=== PATIENT | male | born 2005 | race Hispanic/Latino ===

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

== ENCOUNTER → 2023-03-24 | Emergency (ER) | payer OTHER, SELFPAY ==
[~2023-03-24] MED LIST: KETOROLAC 30 MG/ML INJ ONE
--- OUTSIDE RECORDS SUMMARY | 2023-03-24 18:22 | XMS REPORT | Continuity of Care Document ---
Author Name Unknown Address [address] [facility] [address] [place] [address] [facility] thconnect Address [address] [facility]. [address] [place] [address] Care Team Providers Care Content Administrator Name Role Phone Pcp, Patient Does Not Have A Primary Care Physic jazmine Jaison Neff Attending Clinician Unavailable DAVID RAMIREZ Attending Clinician Unavailable Analia Beltran MD Attending Clinician ANALIA BELTRAN Attending Clinician Unavaila ble Doctor Unassigned, Buna Attending Clinician U David Sawant MD Attending Clinician [phone] ODILIA HARRIS Attending Clinician Unavailable Idalia Verdugo MD Attending Clinician [phone] IDALIA VERDUGO Attending Clinician Michael waldron Payers Payer Name Policy Type Policy Number Effective Date Expirati on Date Source [facility] 53 [id number] [facility] [id number] 2019 00:00:00 Problems Condition Name Condition Details Condition Category Status Onset Date Resolution Date Last Treatment Date Treating Clinician Comments Source TSH elevation TSH elevation Disease Active 06-11 00:00: 00 [facility] Anti-TPO antibodies present Anti-TPO antibodies present Disease Active 06-11 00:00: 00 [facility] [id number] Essential (primary) hypertensi on Problem [facility] [id number] Other obesity due to excess calories Problem [facility] [id number] Body mass index [BMI] 33.0-33.9, adult Problem [facility] [id number] Lymphocyto sis (symptomat ic) Problem [facility] [id number] Mixed hyperlipid emia Problem [facility] [id number] Personal history of other mental and behavioral disorders Problem [facility] [id number] Other specified anxiety disorders Problem [facility] [id number] Sleep trouble Problem [facility] Allergies, Adverse Reactions, Alerts Allergy Name Allergy Type Status Severity Reaction(s) Onset Date Inactive Date Treating Clinician Comments Source NO KNOWN ALLERGIE S Drug Class Active [facility] Social History Social Habit Start Date Stop Date Quantity Comments Source Sex Assigned At [facility] History of Tobacco Use [facility] Exposure to SARS-CoV-2 (event) Not sure [facility] Tobacco use and exposure 2020-06-11 00:00:00 2020-06-11 00:00:00 Never used [facility] Smoking Status Start Date Stop Date Source Never Smoker [facility] Medications Ordered Medication Name Filled Medication Name Start Date Stop Date Current Medication? Ordering Clinician Indication Dosage Frequency Signature (SIG) Comments Components Source Triamcinolo ne Acetonide 0.1 % Triamcinolo ne Acetonide 0.1 % 05-27 00:00: 00 No 1{appli cation} BID Triamcinol one Acetonide 0.1 % Cetirizine HCl 10 MG Cetirizine HCl 10 MG 05-27 00:00: 00 No 1{table t} QD Cetirizine HCl 10 MG Triamcinolo ne Acetonide 0.1 % Triamcinolo ne Acetonide 0.1 % 05-27 00:00: 00 No 1{appli cation} BID Triamcinol one Acetonide 0.1 % Cetirizine HCl 10 MG Cetirizine HCl 10 MG 3-0 05-27 00:00: 00 No 1{table t} QD Cetirizine HCl 10 MG Triamcinolo ne Acetonide 0.1 % Triamcinolo ne Acetonide 0.1 % 3-0 05-27 00:00: 00 No 1{appli cation} BID Triamcinol one Acetonide 0.1 % Cetirizine HCl 10 MG Cetirizine HCl 10 MG 3-0 05-27 00:00: 00 No 1{table t} QD Cetirizine HCl 10 MG Triamcinolo ne Acetonide 0.1 % Triamcinolo ne Acetonide 0.1 % 3-0 05-27 00:00: 00 No 1{appli cation} BID Triamcinol one Acetonide 0.1 % Cetirizine HCl 10 MG Cetirizine HCl 10 MG 3-0 05-27 00:00: 00 No 1{table t} QD Cetirizine HCl 10 MG Triamcinolo ne Acetonide 0.1 % Triamcinolo ne Acetonide 0.1 % 3-0 05-27 00:00: 00 No 1{appli cation} BID Triamcinol one Acetonide 0.1 % Cetirizine HCl 10 MG Cetirizine HCl 10 MG 3-0 05-27 00:00: 00 No 1{table t} QD Cetirizine HCl 10 MG Triamcinolo ne Acetonide 0.1 % Triamcinolo ne Acetonide 0.1 % 2022-0 05-27 00:00: 00 No 1{appli cation} BID Triamcinol one Acetonide 0.1 % Cetirizine HCl 10 MG Cetirizine HCl 10 MG 3-0 05-27 00:00: 00 No 1{table t} QD Cetirizine HCl 10 MG Triamcinolo ne Acetonide 0.1 % Triamcinolo ne Acetonide 0.1 % 3-0 05-27 00:00: 00 No 1{appli cation} BID Triamcinol one Acetonide 0.1 % Cetirizine HCl 10 MG Cetirizine HCl 10 MG 3-05-27 00:00: 00 No 1{table t} QD Cetirizine HCl 10 MG Triamcinolo ne Acetonide 0.1 % Triamcinolo ne Acetonide 0.1 % 05-27 00:00: 00 No 1{appli cation} BID Triamcinol one Acetonide 0.1 % Cetirizine HCl 10 MG Cetirizine HCl 10 MG 2022-0 05-27 00:00: 00 No 1{table t} QD Cetirizine HCl 10 MG lisinopriL 10 mg tablet 1-14 14:39: 49 Yes 10mg Take 10 mg by mouth daily. [facility] hydrOXYzine 25 mg tablet 02-15 00:00: 00 Yes [facility] Lisinopril 20 MG Lisinopril 20 MG No 1{table t} QD Lisinopril 20 MG Paxlovid (300/100) 20 x 150 MG & 10 x 100MG Paxlovid (300/100) 20 x 150 MG & 10 x 100MG No 3{table ts} BID Paxlovid (300/100) 20 x 150 MG & 10 x 100MG Lisinopril 20 MG Lisinopril 20 MG No 1{table t} QD Lisinopril 20 MG Paxlovid (300/100) 20 x 150 MG & 10 x 100MG Paxlovid (300/100) 20 x 150 MG & 10 x 100MG No 3{table ts} BID Paxlovid (300/100) 20 x 150 MG & 10 x 100MG Lisinopril 20 MG Lisinopril 20 MG No 1{table t} QD Lisinopril 20 MG Paxlovid (300/100) 20 x 150 MG & 10 x 100MG Paxlovid (300/100) 20 x 150 MG & 10 x 100MG No 3{table ts} BID Paxlovid (300/100) 20 x 150 MG & 10 x 100MG Lisinopril 20 MG Lisinopril 20 MG No 1{table t} QD Lisinopril 20 MG Paxlovid (300/100) 20 x 150 MG & 10 x 100MG Paxlovid (300/100) 20 x 150 MG & 10 x 100MG No 3{table ts} BID Paxlovid (300/100) 20 x 150 MG & 10 x 100MG Lisinopril 20 MG Lisinopril 20 MG No 1{table t} QD Lisinopril 20 MG Paxlovid (300/100) 20 x 150 MG & 10 x 100MG Paxlovid (300/100) 20 x 150 MG & 10 x 100MG No 3{table ts} BID Paxlovid (300/100) 20 x 150 MG & 10 x 100MG Lisinopril 20 MG Lisinopril 20 MG No 1{table t} QD Lisinopril 20 MG Paxlovid (300/100) 20 x 150 MG & 10 x 100MG Paxlovid (300/100) 20 x 150 MG & 10 x 100MG No 3{table ts} BID Paxlovid (300/100) 20 x 150 MG & 10 x 100MG Lisinopril 20 MG Lisinopril 20 MG No 1{table t} QD Lisinopril 20 MG Lisinopril 20 MG Lisinopril 20 MG No 1{table t} QD Lisinopril 20 MG Lisinopril 20 MG Lisinopril 20 MG No 1{table t} QD Lisinopril 20 MG Lisinopril 20 MG Lisinopril 20 MG No 1{table t} QD Lisinopril 20 MG Lisinopril 20 MG Lisinopril 20 MG No 1{table t} QD Lisinopril 20 MG Lisinopril 20 MG Lisinopril 20 MG No 1{table t} QD Lisinopril 20 MG Lisinopril 20 MG Lisinopril 20 MG No 1{table t} QD Lisinopril 20 MG Paxlovid (300/100) 20 x 150 MG & 10 x 100MG Paxlovid (300/100) 20 x 150 MG & 10 x 100MG No 3{table ts} BID Paxlovid (300/100) 20 x 150 MG & 10 x 100MG Lisinopril 20 MG Lisinopril 20 MG No 1{table t} QD Lisinopril 20 MG Paxlovid (300/100) 20 x 150 MG & 10 x 100MG Paxlovid (300/100) 20 x 150 MG & 10 x 100MG No 3{table ts} BID Paxlovid (300/100) 20 x 150 MG & 10 x 100MG Immunizations Ordered Immunization Name Filled Immunization Name Date Status Comments Source Flucelvax - multidose vial Flucelvax - multidose vial 2021-02-07 15:33:00 Completed [facility] Flucelvax - multidose vial Flucelvax - multidose vial 2021-02-07 15:33:00 Completed [facility] Flucelvax - multidose vial Flucelvax - multidose vial 2021-02-07 15:33:00 Completed [facility] Flucelvax - multidose vial Flucelvax - multidose vial 2021-02-07 15:33:00 Completed [facility] Flucelvax - multidose vial Flucelvax - multidose vial 2021-02-07 15:33:00 Completed [facility] Flucelvax - multidose vial Flucelvax - multidose vial 2021-02-07 15:33:00 Completed [facility] HPV9 2015-08-23 00:00:00 Completed [facility] HPV9 2015-02-13 00:00:00 Completed [facility] Flucelvax - multidose vial Flucelvax - multidose vial Unknown Completed [facility] Flucelvax - multidose vial Flucelvax - multidose vial Unknown Completed [facility] Flucelvax - multidose vial Flucelvax - multidose vial Unknown Completed [facility] Flucelvax - multidose vial Flucelvax - multidose vial Unknown Completed [facility] Flucelvax - multidose vial Flucelvax - multidose vial Unknown Completed [facility] Flucelvax (ccIIV4) - MDV - 0.5mL Flucelvax (ccIIV4) - MDV - 0.5mL Unknown Completed [facility] Flucelvax - multidose vial Flucelvax - multidose vial Unknown Completed [facility] Flucelvax - multidose vial Flucelvax - multidose vial Unknown Completed [facility] Vital Signs Vital Name Observation Time Observation Value Comments S marian height 2022-06-04 11:50:00 69 [in_i] Commo n [facility] weight 2022-06-04 11:50:00 209 [lb_av] Comm on [facility] temperature 2022-06-04 11:50:00 98.0 [degF] Com [facility] bmi 2022-06-04 11:50:00 30.86 kg/m2 Comm on [facility] respiratory rate 2022-05-27 14:40:00 17 /min [facility] blood pressure systolic 2022-05-27 14:40:00 127 mm[Hg] [facility] blood pressure diastolic 2022-05-27 14:40:00 62 mm[Hg] [facility] height 2022-05-27 14:40:00 69 [in_i] Commo n [facility] weight 2022-05-27 14:40:00 216.8 [lb_av] Co [facility] temperature 2022-05-27 14:40:00 98.2 [degF] Com [facility] bmi 2022-05-27 14:40:00 32.01 kg/m2 Comm on [facility] oximetry 2022-05-27 14:40:00 98 % Commo n [facility] height 2021-12-10 14:10:00 69 [in_i] Commo n [facility] weight 2021-12-10 14:10:00 230.0 [lb_av] Co [facility] temperature 2021-12-10 14:10:00 97.4 [degF] Com [facility] bmi 2021-12-10 14:10:00 33.96 kg/m2 Comm on [facility] oximetry 2021-12-10 14:10:00 99 % Commo n [facility] respiratory rate 2021-12-10 14:10:00 18 /min Common [facility] blood pressure systolic 2021-12-10 14:10:00 129 mm[Hg] [facility] blood pressure diastolic 2021-12-10 14:10:00 72 mm[Hg] [facility] height 2021-11-26 15:10:00 69 [in_i] Commo n [facility] weight 2021-11-26 15:10:00 233 [lb_av] Comm on [facility] temperature 2021-11-26 15:10:00 97.3 [degF] Com mon [facility] bmi 2021-11-26 15:10:00 34.4 kg/m2 Commo n [facility] oximetry 2021-11-26 15:10:00 98 % Commo n [facility] respiratory rate 2021-11-26 15:10:00 18 /min Common [facility] blood pressure systolic 2021-11-26 15:10:00 135 mm[Hg] [facility] blood pressure diastolic 2021-11-26 15:10:00 74 mm[Hg] Common [facility] height 2021-06-12 15:30:00 69 [in_i] Commo n [facility] weight 2021-06-12 15:30:00 229.1 [lb_av] Co mmon [facility] temperature 2021-06-12 15:30:00 98.8 [degF] Com mon [facility] bmi 2021-06-12 15:30:00 33.83 kg/m2 Comm on [facility] oximetry 2021-06-12 15:30:00 97 % Commo n [facility] respiratory rate 2021-06-12 15:30:00 17 /min Common [facility] blood pressure systolic 2021-06-12 15:30:00 137 mm[Hg] [facility] blood pressure diastolic 2021-06-12 15:30:00 66 mm[Hg] [facility] Body temperature 2020-10-30 19:27:00 35.89 [facility] Body weight 2020-10-30 19:27:00 131.543 kg [facility] Encounters Start Date/Time End Date/Time Encounter Type Admission Type Attending [facility] Care Facility Care Department Encounter ID Source 2022-03-11 08:31:01 Outpatient Jaison Neff [facility] [id number] [facility] 2021-11-24 15:41:02 Outpatient Jaison Neff [facility] [id number] [facility] 2021-07-04 11:53:03 Outpatient Jaison Neff [facility] [id number] [facility] 2021-06-12 14:56:03 Outpatient Jaison Neff [facility] [id number] [facility] 2022-12-02 00:00:00 2022-12-02 00:00:00 (TEL) [facility] [id number] [facility] 2022-06-08 00:00:00 2022-06-08 00:00:00 (TEL) [facility] [id number] [facility] 2022-06-05 00:00:00 2022-06-05 00:00:00 (TEL) [facility] [id number] [facility] 2022-06-04 00:00:00 2022-06-04 00:00:00 OFFICE VISIT ESTAB PT LEVEL 3 [facility] [id number] [facility] 2022-06-03 10:32:14 2022-06-03 10:32:14 Outpatient SFA HIRAM [id number] Blayne Barnes 2022-06-03 00:00:00 2022-06-03 00:00:00 (TEL) [facility] [id number] [facility] 2022-06-02 00:00:00 2022-06-02 00:00:00 (TEL) [facility] [id number] [facility] 2022-05-27 00:00:00 2022-05-27 00:00:00 OFFICE VISIT ESTAB PT LEVEL 3 [facility] [id number] [facility] 2022-05-26 00:00:00 2022-05-26 00:00:00 (TEL) [facility] [id number] [facility] 2021-12-11 00:00:00 2021-12-11 00:00:00 (TEL) [facility] [id number] [facility] 2021-12-10 00:00:00 2021-12-10 00:00:00 OFFICE VISIT EST PT LEVEL 3 [facility] [id number] [facility] 2021-12-09 00:00:00 2021-12-09 00:00:00 (TEL) [facility] [id number] [facility] 2021-11-26 00:00:00 2021-11-26 00:00:00 OFFICE VISIT EST PT LEVEL 3 [facility] [id number] [facility] 2021-06-12 00:00:00 2021-06-12 00:00:00 PREV VISIT EST AGE 18-39 [facility] [id number] [facility] 2020-12-12 14:30:00 2020-12-12 14:30:00 Outpatient DAVID BHATTI [facility] [id number] [facility] 2020-10-30 14:29:46 2020-10-30 23:59:00 Hospital Encounter Analia Beltran [facility] [id number] [facility] 2020-10-30 14:20:53 2020-10-30 15:08:07 Office Visit Analia Beltran [facility] [id number] [id number] [facility] 2020-10-30 14:10:00 2020-10-30 14:10:00 Outpatient ANALIA MCADAMS [facility] [id number] [facility] 2020-10-23 00:00:00 2020-10-23 00:00:00 Orders Only Doctor Unassigned, Buna [facility] [id number] [id number] [id number] [facility] 2020-10-23 00:00:00 2020-10-23 00:00:00 Orders Only Doctor Unassigned, Buna [facility] [id number] 4.2.7.2.686 [id number] [facility] 2020-06-20 00:00:00 2020-06-20 00:00:00 Telephone [facility] [place] [id number] 350.1.13.10 [id number] [id number] [facility] 2020-06-11 14:21:22 2020-06-11 15:34:20 [facility] [place] [id number] 350.1.13.10 4.2.7.2.686 [id number] [facility] 2020-06-11 14:30:00 2020-06-11 14:30:00 Outpatient R ASHLEY [facility] [id number] [facility] 2020-06-11 00:00:00 2020-06-11 00:00:00 [facility] [id number] 350.1.13.10 [id number] [id number] [facility] 2020-06-11 00:00:00 2020-06-11 00:00:00 Orders Only Doctor Unassigned, Buna [facility] [id number] 350.1.13.10 4.2.7.2.686 [id number] [facility] 2020-06-11 00:00:00 2020-06-11 00:00:00 Letter (Out) [facility] [id number] 350.1.13.10 4.2.7.2.686 [id number] [facility] 2020-06-03 11:10:00 2020-06-03 11:10:00 Outpatient DOILIA MOE [facility] [id number] [facility] 2020-05-08 00:00:00 2020-05-08 00:00:00 Orders Only Doctor Unassigned, Buna [facility] [id number] 350.1.13.10 4.2.7.2.686 [id number] [facility] 2020-02-23 00:00:00 2020-02-23 00:00:00 [address]go [facility] [id number] 350.1.13.10 4.2.7.2.686 [id number] [facility] 2020-02-22 14:13:01 2020-02-22 15:28:26 Office Visit Idalia Verdugo [facility] [id number] 350.1.13.10 4.2.7.2.686 [id number] [facility] 2020-02-22 14:00:00 2020-02-22 14:00:00 Outpatient IDALIA SYKES [facility] [id number] [facility] 2020-02-22 00:00:00 2020-02-22 00:00:00 Orders Only Doctor Unassigned, Buna [facility] [id number] 350.1.13.10 4.2.7.2.686 [id number] [facility]
[2023-03-24 19:03] LABS: Urine Bilirubin NEGATIVE (Negative); Urine Blood Negative (Negative); Urine Clarity Clear (Clear); Urine Color Colorless (Yellow); Urine Glucose NEGATIVE (Negative); Urine Protein NEGATIVE (Negative); Urine Urobilinogen Normal (Normal)
[2023-03-24 19:04] LABS: Absolute Lymphocytes (CBC) 1.5 K/uL (0.7-4.9); Hematocrit 44.6 % (39.6-49.0); Lymphocytes % 20.2 % (15.3-44.8); MCV 90.1 fL (80-100); MPV 7.8 fL (7.6-11.3); Platelets 227 thou/uL (152-406); RBC Red Blood Cell Count 4.95 M/uL (4.33-5.43)
[2023-03-24 19:21] LABS: Bilirubin Total 0.5 mg/dL (0.2-1.0); Potassium 4.6 mEq/L (3.5-5.1); Protein, Total 7.6 g/dL (6.4-8.2)
--- NOTE | 2023-03-24 19:32 | RAD REPORT ---
EXAM DESCRIPTION: CT - Stone Protocol - 03/24/2023 7:12 pm CLINICAL HISTORY: Flank pain. Abd pain;Flank pain COMPARISON: Abdomen Pelvis W Contrast dated 06/05/2022 TECHNIQUE: Axial images were obtained without oral or IV contrast. Lack of contrast limits solid org an and vascular assessment. The [id number] spans the entirety of the system partially obscuring uppermost abdomen and lung bases. Coronal reformatted images were obtained and reviewed. All CT scans are performed using dose optimization technique as appropriate and may include automated exposure control or mA/KV adjustment according to patient size. FINDINGS: The lower lung tamayo are clear. Imaged portions of the liver and spleen show no suspicious findings on non-contrast imaging. The panc reas and adrenal glands are normal. No pathologic lymphadenopathy in the abdomen or pelvis. Atrophic right kidney. Left kidney demonstrates no stone or hydronephrosis. No bowel obstruction, free air, free fluid or abscess. Appendectomy. No significant bony abnormality. IMPRESSION: No left-sided stone or hydronephrosis. Atrophic right kidney.
--- NOTE | 2023-03-24 19:43 | ER ---
Nurse's Notes [facility] Name: Demarcus Mathias III Age: 18 yrs Sex: Male : 2005 Arrival Date: 03/24/2023 Time: 18:19 Bed 20 Private MD: Diagnosis: Abdominal pain, unspecified Presentation: 03/24 18:31 Chief complaint: Patient states: LLQ pain, L flank pain X 5 days. Coronavirus screen: ld1 At this time, the client does not indicate any symptoms associated with coronavirus-19. Ebola Screen: No symptoms or risks identified at this time. Initial Sepsis Screen: Does the patient meet any 2 criteria? No. Patient's initial sepsis screen is negative. Does the patient have a suspected source of infection? No. Patient's initial sepsis screen is negative. Risk Assessment: Do you want to hurt yourself or someone else? Patient reports no desire to harm self or others. Onset of symptoms was March 24, 2023. 18:31 Method Of Arrival: Ambulatory ld1 18:31 Acuity: LUIS ANTONIO 3 ld1 Triage Assessment: 18:32 General: Appears in no apparent distress. comfortable, Behavior is calm, cooperative, ld1 appropriate for age. Pain: Complains of pain in right low back and left lower quadrant Pain does not radiate. Pain currently is 3 out of 10 on a pain scale. Quality of pain is described as throbbing, Pain began suddenly, Is continuous. EENT: No signs and/or symptoms were reported regarding the EENT system. Neuro: Level of Consciousness is awake, alert, obeys commands, Oriented to person, place, time, situation, Appropriate for age. Cardiovascular: Capillary refill < 3 seconds Patient's skin is warm and dry. Respiratory: Airway is patent Respiratory effort is even, unlabored. GI: Abdomen is flat, non-distended. : Reports pain flank(s). Derm: No signs and/or symptoms reported regarding the dermatologic system. Musculoskeletal: No signs and/or symptoms reported regarding the musculoskeletal system. Historical: - Allergies: 18:32 NKDA; ld1 18:32 turf grass; ld1 - PMHx: 18:32 Bordeline HTN; ld1 - PSHx: 18:32 Appendectomy; ld1 - Immunization history:: Adult Immunizations up to date. - Social history:: Smoking status: Patient denies any tobacco usage or history of. Patient/guardian denies using alcohol. Screenin:50 [facility] ED Fall Risk Assessment (Adult) History of falling in the last 3 months, db including since admission No falls in past 3 months (0 pts) Confusion or Disorientation No (0 pts) Intoxicated or Sedated No (0 pts) Impaired Gait No (0 pts) Mobility Assist Device Used No (0 pt) Altered Elimination No (0 pt) Score/Fall Risk Level 0 - 2 = Low Risk Oriented to surroundings, Maintained a safe environment. Abuse screen: Denies threats or abuse. Denies injuries from another. Nutritional screening: No deficits noted. Tuberculosis screening: No symptoms or risk factors identified. Assessment: 18:50 Reassessment: Patient appears in no apparent distress at this time. Patient and/or db family updated on plan of care and expected duration. Pain level reassessed. Patient is alert, oriented x 3, equal unlabored respirations, skin warm/dry/pink. General: Appears in no apparent distress. comfortable, Behavior is calm, cooperative. Neuro: Level of Consciousness is awake, alert, obeys commands, Oriented to person, place, time, situation. Respiratory: Airway is patent Respiratory effort is even, unlabored, Respiratory pattern is regular, symmetrical. Vital Signs: 18:31 BP 145 / 66; Pulse 95; Resp 18; Temp 97.6(TE); Pulse Ox 100% on R/A; Weight 90.72 kg; ld1 Height 5 ft. 10 in. ; Pain 3/10; 20:08 BP 144 / 70; Pulse 70; Resp 18 S; Pulse Ox 100% on R/A; as6 18:31 Body Mass Index 28.70 (90.72 kg, 177.8 cm) ld1 18:31 Pain Scale: Adult ld1 ED Course: 18:22 Patient arrived in ED. ae5 18:24 Charl[facility] Daly [facility]NP-C [facility]. kb 18:24 Hardeep Walker MD is Attending Physician. kb 18:32 Triage completed. ld1 18:32 Arm band placed on right wrist. ld1 18:50 Rosa Maria Camarillo, KARISHMA is Primary Nurse. db 18:50 Patient has correct armband on for positive identification. Bed in low position. Call db light in reach. Side rails up X 1. 18:55 Initial lab(s) drawn, by me, sent to lab. Urine collected: clean catch specimen, clear. db Inserted saline lock: 22 gauge in right antecubital area, using aseptic technique. Blood collected. 19:14 CT Stone Protocol In Process Unspecified. EDMS 19:30 Jolie Prado, RN is Primary Nurse. jw7 20:09 Provided Education on: follow up. as6 20:09 No provider procedures requiring assistance completed. IV discontinued, intact, as6 bleeding controlled, No redness/swelling at site. Pressure dressing applied. Administered Medications: 19:03 Drug: Ketorolac IVP 15 mg IVP once Route: IVP; Site: right antecubital; db 20:09 Follow up: Response: No adverse reaction as6 Medication: 18:50 VIS not applicable for this client. db Outcome: 19:43 Discharge ordered by MD. kb 20:09 Discharged to home ambulatory, with family, as6 20:09 Condition: stable 20:09 Discharge instructions given to patient, Instructed on discharge instructions, follow up and referral plans. Demonstrated understanding of instructions, follow-up care, 20:09 Patient left the ED. as6 Signatures: Dispatcher [employer] EDMS Charlene Daly, TOOLROOM HELPER-C TOOLROOM HELPER-Ckb Nancy Miles, RN RN ld1 Fredy Nguyen, RN RN as6 Jolie Prado, RN RN jw7 Rosa Maria Camarillo, RN RN Kristin Brown ae5
--- NOTE | 2023-03-24 19:43 | EDPHYS ---
Physician Documentation [facility] Name: Demarcus Mathias III Age: 18 yrs Sex: Male : 2005 Arrival Date: 03/24/2023 Time: 18:19 Bed 20 Private MD: ED Physician Hardeep Walker HPI: 03/24 20:33 This 18 yrs old Male presents to ER via Ambulatory with complaints of Flank kb Pain. 20:33 Patient is a 18-year-old male who presents for intermittent left flank and left kb abdominal pain that started 5 days ago. Denies nausea, vomiting, diarrhea, fever, urinary symptoms. States nothing makes pain better or worse.. Historical: - Allergies: 18:32 NKDA; ld1 18:32 turf grass; ld1 - PMHx: 18:32 Bordeline HTN; ld1 - PSHx: 18:32 Appendectomy; ld1 - Immunization history:: Adult Immunizations up to date. - Social history:: Smoking status: Patient denies any tobacco usage or history of. Patient/guardian denies using alcohol. ROS: 20:33 Constitutional: Negative for fever, chills, and weight loss, kb 20:33 Abdomen/GI: Positive for abdominal pain, 20:33 Back: Positive for flank pain, on the left, 20:33 All other systems are negative, Exam: 20:33 Constitutional: This is a well developed, well nourished patient who is awake, alert, kb and in no acute distress. Head/Face: Normocephalic, atraumatic. ENT: Moist Mucous membranes Cardiovascular: Regular rate Respiratory: Respirations even and unlabored. No increased work of breathing. Talking in full sentences Abdomen/GI: Soft, non-tender. No distention Skin: Warm, dry with normal turgor. Normal color. MS/ Extremity: Pulses equal, no cyanosis. Neurovascular intact. Full, normal range of motion. Neuro: Awake and alert, GCS 15, oriented to person, place, time, and situation. Moves all extremities. Normal gait. Vital Signs: 18:31 BP 145 / 66; Pulse 95; Resp 18; Temp 97.6(TE); Pulse Ox 100% on R/A; Weight 90.72 kg; ld1 Height 5 ft. 10 in. ; Pain 3/10; 20:08 BP 144 / 70; Pulse 70; Resp 18 S; Pulse Ox 100% on R/A; as6 18:31 Body Mass Index 28.70 (90.72 kg, 177.8 cm) ld1 18:31 Pain Scale: Adult ld1 MDM: 18:24 Patient medically screened. kb 20:34 Differential diagnosis: nephrolithiasis, pyelonephritis, UTI, diverticulitis. Data kb reviewed: vital signs, nurses notes. Counseling: I had a detailed discussion with the patient and/or guardian regarding the historical points, exam findings, and any diagnostic results supporting the discharge/admit diagnosis, lab results, radiology results, the need for outpatient follow up, a family practitioner, to return to the emergency department if symptoms worsen or persist or if there are any questions or concerns that arise at home. 03/24 18:30 Order name: CBC with Diff; Complete Time: 19:06 kb 03/24 18:30 Order name: CMP; Complete Time: 19:24 kb 03/24 18:30 Order name: Lipase; Complete Time: 19:24 kb 03/24 18:30 Order name: Urinalysis w/ reflexes; Complete Time: 19:06 kb 03/24 18:30 Order name: CT Stone Protocol; Complete Time: 19:38 kb 03/24 18:30 Order name: IV Saline Lock; Complete Time: 19:03 kb 03/24 18:30 Order name: Labs collected and sent; Complete Time: 19:03 kb Administered Medications: 19:03 Drug: Ketorolac IVP 15 mg IVP once Route: IVP; Site: right antecubital; db 20:09 Follow up: Response: No adverse reaction as6 Disposition: 03/25 19:59 Co-signature as Attending Physician, Hardeep Walker MD I reviewed the patient's care rt provided by the Advanced Practice Provider and agree with the diagnosis and treatment plan. Disposition Summary: 03/24/23 19:43 Discharge Ordered Notes: Location: Home kb Condition: Stable kb Diagnosis - Abdominal pain, unspecified kb Followup: kb - With: Emergency Department - When: As needed - Reason: Worsening of condition Followup: kb - With: Private Physician - When: 2 - 3 days - Reason: Recheck today's complaints, Continuance of care, Re-evaluation by your physician Discharge Instructions: - Discharge Summary Sheet kb - Abdominal Pain, Adult, [id number] kb - Muscle Strain, [id number] kb - Flank Pain, Adult, [id number] kb Forms: - Medication Reconciliation Form kb - Thank You Letter kb - Antibiotic Education kb - Prescription Opioid Use kb - Patient Portal Instructions kb - Leadership Thank You Letter kb Signatures: Dispatcher [employer] Charlene Hernandez, VICE PRESIDENT PAYER-C VICE PRESIDENT PAYER-Nancy Cardenas RN RN ld1 Rosa Maria Camarillo RN RN db Hardeep Walker MD MD rt Fredy Nguyen RN as6
[2023-03-24 20:23] VITALS: BP 144/70; TEMP 97.6; O2SAT 100
== END ==
LOC: ER 18:19
DX: R10.32 Left lower quadrant pain (principal)
CPT/HCPCS: 36415; 74176; 76377; 80053; 81003; 83690; 85025

== ENCOUNTER 2023-10-04 12:59 | Emergency (ER) | payer OTHER, SELFPAY ==
--- OUTSIDE RECORDS SUMMARY | 2023-10-04 13:03 | XMS REPORT | Continuity of Care Document ---
Author Name Unknown Address [address] [place] [address] [facility] thconnect Address [address] [place] [address] Care Team Providers Care Business Support Name Role Phone Pcp, Patient Does Not Have A Primary Care Physic jazmine Jaison Neff Attending Clinician Unavailable DAVID RAMIREZ Attending Clinician Unavailable Analia Beltran MD Attending Clinician [phone] ANALIA BELTRAN Attending Clinician Unavaila ble Doctor Unassigned, Paige Attending Clinician U David Sawant MD Attending Clinician ODILIA HARRIS Attending Clinician Unavailable Idalia Verdugo MD Attending Clinician [phone] IDALIA VERDUGO Attending Clinician Michael waldron Payers Payer Name Policy Type Policy Number Effective Date Expirati on Date Source [facility] 53 [id number] [facility] [id number] 2019 00:00:00 Problems Condition Name Condition Details Condition Category Status Onset Date Resolution Date Last Treatment Date Treating Clinician Comments Source TSH elevation TSH elevation Disease Active 06-11 00:00: 00 [facility] Anti-TPO antibodies present Anti-TPO antibodies present Disease Active 06-11 00:00: 00 [facility] [id number] Essential (primary) hypertensi on Problem [facility] [id number] Other obesity due to excess calories Problem [facility] [id number] Body mass index [BMI] 33.0-33.9, adult Problem [facility] [id number] Lymphocyto sis (symptomat ic) Problem [facility] [id number] Mixed hyperlipid emia Problem [facility] [id number] Personal history of other mental and behavioral disorders Problem [facility] [id number] Other specified anxiety disorders Problem [facility] [id number] Sleep trouble Problem [facility] Allergies, Adverse Reactions, Alerts Allergy Name Allergy Type Status Severity Reaction(s) Onset Date Inactive Date Treating Clinician Comments Source NO KNOWN ALLERGIE S Drug Class Active [facility] Social History Social Habit Start Date Stop Date Quantity Comments Source Sex Assigned At [facility] History of Tobacco Use [facility] Exposure to SARS-CoV-2 (event) Not sure [facility] Tobacco use and exposure 2020-06-11 00:00:00 2020-06-11 00:00:00 Never used [facility] Smoking Status Start Date Stop Date Source Never Smoker [facility] Medications Ordered Medication Name Filled Medication Name Start Date Stop Date Current Medication? Ordering Clinician Indication Dosage Frequency Signature (SIG) Comments Components Source Cetirizine HCl 10 MG Cetirizine HCl 10 [...] cation} BID Triamcinol one Acetonide 0.1 % lisinopriL 10 mg tablet 14 14:39: 49 Yes 10mg Take 10 mg by mouth daily. [facility] hydrOXYzine 25 mg tablet 02-15 00:00: 00 Yes [facility] Lisinopril 20 MG Lisinopril 20 MG [...] Flucelvax - multidose vial 2021-02-07 15:33:00 Completed [facility] Flucelvax - multidose vial Flucelvax - multidose vial 2021-02-07 15:33:00 Completed [facility] Flucelvax - multidose vial Flucelvax - multidose vial 2021-02-07 15:33:00 Completed [facility] Flucelvax - multidose vial Flucelvax - multidose vial 2021-02-07 15:33:00 Completed [facility] Flucelvax - multidose vial Flucelvax - multidose vial 2021-02-07 15:33:00 Completed [facility] Flucelvax - multidose vial Flucelvax - multidose vial 2021-02-07 15:33:00 Completed [facility] HPV9 2015-08-23 00:00:00 Completed [facility] HPV9 2015-02-13 00:00:00 Completed [facility] Flucelvax - multidose vial Flucelvax - multidose vial Unknown Completed [facility] Flucelvax - multidose vial Flucelvax - multidose vial Unknown Completed [facility] Flucelvax - multidose vial Flucelvax - multidose vial Unknown Completed [facility] Flucelvax - multidose vial Flucelvax - multidose vial Unknown Completed [facility] Flucelvax - multidose vial Flucelvax - multidose vial Unknown Completed [facility] Flucelvax (ccIIV4) - MDV - 0.5mL Flucelvax (ccIIV4) - MDV - 0.5mL Unknown Completed [facility] Flucelvax - multidose vial Flucelvax - multidose vial Unknown Completed [facility] Flucelvax - multidose vial Flucelvax - multidose vial Unknown Completed [facility] Vital Signs Vital Name Observation Time Observation Value Comments S marian height 2022-06-04 11:50:00 69 [in_i] Commo n [facility] weight 2022-06-04 11:50:00 209 [lb_av] Comm on [facility] temperature 2022-06-04 11:50:00 98.0 [degF] Com [facility] bmi 2022-06-04 11:50:00 30.86 kg/m2 Comm on [facility] respiratory rate 2022-05-27 14:40:00 17 /min [facility] blood pressure systolic 2022-05-27 14:40:00 127 mm[Hg] [facility] blood pressure diastolic 2022-05-27 14:40:00 62 mm[Hg] [facility] height 2022-05-27 14:40:00 69 [in_i] Commo n [facility] weight 2022-05-27 14:40:00 216.8 [lb_av] Co [facility] temperature 2022-05-27 14:40:00 98.2 [degF] Com [facility] bmi 2022-05-27 14:40:00 32.01 kg/m2 Comm on [facility] oximetry 2022-05-27 14:40:00 98 % Commo n [facility] height 2021-12-10 14:10:00 69 [in_i] Commo n [facility] weight 2021-12-10 14:10:00 230.0 [lb_av] Co [facility] temperature 2021-12-10 14:10:00 97.4 [degF] Com [facility] bmi 2021-12-10 14:10:00 33.96 kg/m2 Comm on [facility] oximetry 2021-12-10 14:10:00 99 % Commo n [facility] respiratory rate 2021-12-10 14:10:00 18 /min [facility] blood pressure systolic 2021-12-10 14:10:00 129 mm[Hg] [facility] blood pressure diastolic 2021-12-10 14:10:00 72 mm[Hg] [facility] height 2021-11-26 15:10:00 69 [in_i] Commo n [facility] weight 2021-11-26 15:10:00 233 [lb_av] Comm on [facility] temperature 2021-11-26 15:10:00 97.3 [degF] Com mon [facility] bmi 2021-11-26 15:10:00 34.4 kg/m2 Commo n [facility] oximetry 2021-11-26 15:10:00 98 % Commo n [facility] respiratory rate 2021-11-26 15:10:00 18 /min [facility] blood pressure systolic 2021-11-26 15:10:00 135 mm[Hg] [facility] blood pressure diastolic 2021-11-26 15:10:00 74 mm[Hg] [facility] height 2021-06-12 15:30:00 69 [in_i] Commo n [facility] weight 2021-06-12 15:30:00 229.1 [lb_av] Co mmon [facility] temperature 2021-06-12 15:30:00 98.8 [degF] Com mon [facility] bmi 2021-06-12 15:30:00 33.83 kg/m2 Comm on [facility] oximetry 2021-06-12 15:30:00 97 % Commo n [facility] respiratory rate 2021-06-12 15:30:00 17 /min [facility] blood pressure systolic 2021-06-12 15:30:00 137 mm[Hg] [facility] blood pressure diastolic 2021-06-12 15:30:00 66 mm[Hg] [facility] Body temperature 2020-10-30 19:27:00 35.89 [facility] Body weight 2020-10-30 19:27:00 131.543 [facility] En[facility] Start Date/Time End Date/Time Encounter Type Admission Type Attending [facility] Care Facility Care Department Encounter ID Source 2022-03-11 08:31:01 Outpatient Jaison Neff [facility] [id number] [facility] 2021-11-24 15:41:02 Outpatient Jaison Neff [facility] [id number] [facility] 2021-07-04 11:53:03 Outpatient Jaison Neff [facility] [id number] [facility] 2021-06-12 14:56:03 Outpatient Jaison Neff [facility] [id number] [facility] 2022-12-02 00:00:00 2022-12-02 00:00:00 (TEL) [facility] [id number] [facility] 2022-06-08 00:00:00 2022-06-08 00:00:00 (TEL) [facility] [id number] [facility] 2022-06-05 00:00:00 2022-06-05 00:00:00 (TEL) [facility] [id number] [facility] 2022-06-04 00:00:00 2022-06-04 00:00:00 OFFICE VISIT ESTAB PT LEVEL 3 [facility] [id number] [facility] 2022-06-03 10:32:14 2022-06-03 10:32:14 Outpatient SFA HIRAM [id number] Blayne Barnes 2022-06-03 00:00:00 2022-06-03 00:00:00 (TEL) [facility] [id number] [facility] 2022-06-02 00:00:00 2022-06-02 00:00:00 (TEL) [facility] [id number] [facility] 2022-05-27 00:00:00 2022-05-27 00:00:00 OFFICE VISIT ESTAB PT LEVEL 3 [facility] [id number] [facility] 2022-05-26 00:00:00 2022-05-26 00:00:00 (TEL) [facility] [id number] [facility] 2021-12-11 00:00:00 2021-12-11 00:00:00 (TEL) [facility] [id number] [facility] 2021-12-10 00:00:00 2021-12-10 00:00:00 OFFICE VISIT EST PT LEVEL 3 [facility] [id number] [facility] 2021-12-09 00:00:00 2021-12-09 00:00:00 (TEL) [facility] [id number] [facility] 2021-11-26 00:00:00 2021-11-26 00:00:00 OFFICE VISIT EST PT LEVEL 3 [facility] [id number] [facility] 2021-06-12 00:00:00 2021-06-12 00:00:00 PREV VISIT EST AGE 18-39 [facility] ST[facility] [id number] [facility] 2020-12-12 14:30:00 2020-12-12 14:30:00 Outpatient DAVID BHATTI [facility] [id number] [facility] 2020-10-30 14:29:46 2020-10-30 23:59:00 Hospital Encounter Analia Beltran [facility] [id number] [id number] [id number] [facility] 2020-10-30 14:20:53 2020-10-30 15:08:07 Office Visit Analia Beltran [facility] [id number] [id number] [id number] [id number] [facility] 2020-10-30 14:10:00 2020-10-30 14:10:00 Outpatient ANALIA MCADAMS [facility] [id number] [facility] 2020-10-23 00:00:00 2020-10-23 00:00:00 Orders Only Doctor Unassigned, Paige [facility] [id number] 350.1.13.10 [id number] [id number] [facility] 2020-10-23 00:00:00 2020-10-23 00:00:00 Orders Only Doctor Unassigned, Paige [facility] [id number] 350.1.13.10 4.2.7.2.686 [id number] [facility] 2020-06-20 00:00:00 2020-06-20 00:00:00 Telephone Ashley [facility] [place] [id number] 350.1.13.10 4.2.7.2.686 [id number] [facility] 2020-06-11 14:21:22 2020-06-11 15:34:20 Office Visit Ashley [facility] [place] [id number] 350.1.13.10 4.2.7.2.686 [id number] [facility] 2020-06-11 14:30:00 2020-06-11 14:30:00 Outpatient R ASHLEY [facility] [id number] [facility] 2020-06-11 00:00:00 2020-06-11 00:00:00 [facility] [id number] 350.1.13.10 4.2.7.2.686 [id number] [facility] 2020-06-11 00:00:00 2020-06-11 00:00:00 Orders Only Doctor Unassigned, Paige [facility] [id number] 350.1.13.10 4.2.7.2.686 [id number] [facility] 2020-06-11 00:00:00 2020-06-11 00:00:00 Letter (Out) [facility] [id number] 350.1.13.10 4.2.7.2.686 [id number] [facility] 2020-06-03 11:10:00 2020-06-03 11:10:00 Outpatient ODILIA MOE [facility] [id number] [facility] 2020-05-08 00:00:00 2020-05-08 00:00:00 Orders Only Doctor Unassigned, Paige [facility] [id number] 350.1.13.10 4.2.7.2.686 [id number] [facility] 2020-02-23 00:00:00 2020-02-23 00:00:00 Telephone Idalia Verdugo [facility] [id number] 350.1.13.10 4.2.7.2.686 [id number] [facility] 2020-02-22 14:13:01 2020-02-22 15:28:26 Office Visit Idalia Verdugo [facility] [id number] 350.1.13.10 4.2.7.2.686 [id number] [facility] 2020-02-22 14:00:00 2020-02-22 14:00:00 Outpatient IDALIA SYKES [facility] [id number] [facility] 2020-02-22 00:00:00 2020-02-22 00:00:00 Orders Only Doctor Unassigned, Paige [facility] 1.2.840.114 350.1.13.10 4.2.7.2.686 [id number] [facility]
--- NOTE | 2023-10-04 13:28 | ER ---
Nurse's Notes [facility] Name: Demarcus Mathias III Age: 18 yrs Sex: Male : 2005 Arrival Date: 10/04/2023 Time: 12:59 Bed IW7 Private MD: Diagnosis: Concern for sexually transmitted infections Presentation: 10/03 13:15 Chief complaint: Patient states: has had congestion and trouble swallowing, like iw allergies , then I have phlegm , my eyes are itchy , symptoms are intermittent , this morning he had chills and body aches. Coronavirus screen: Client presents with at least one sign or symptom that may indicate coronavirus-19. Ebola Screen: No symptoms or risks identified at this time. Initial Sepsis Screen: Does the patient meet any 2 criteria? No. Patient's initial sepsis screen is negative. Does the patient have a suspected source of infection? No. Patient's initial sepsis screen is negative. Risk Assessment: Do you want to hurt yourself or someone else? Patient reports no desire to harm self or others. Onset of symptoms was September 09, 2023. 13:15 Method Of Arrival: Ambulatory 13:15 Acuity: LUIS ANTONIO 4 Triage Assessment: 13:49 General: Appears in no apparent distress. Behavior is calm, cooperative, appropriate ap3 for age. Pain: Denies pain. EENT: Reports nasal congestion. Neuro: Level of Consciousness is awake, alert, obeys commands, Oriented to person, place, time, situation, Appropriate for age. Cardiovascular: Patient's skin is warm and dry. Respiratory: Airway is patent Respiratory effort is even, unlabored, Respiratory pattern is regular, symmetrical. Historical: - Allergies: 13:17 NKDA; iw - Home Meds: 13:17 None [Active]; iw - PMHx: 13:17 Bordeline HTN; iw - PSHx: 13:17 Appendectomy; iw - Immunization history:: Adult Immunizations not up to date. - Infectious Disease History:: Denies. - Social history:: Smoking status: . Screenin:49 [facility] ED Fall Risk Assessment (Adult) History of falling in the last 3 months, ap3 including since admission No falls in past 3 months (0 pts) Confusion or Disorientation No (0 pts) Intoxicated or Sedated No (0 pts) Impaired Gait No (0 pts) Mobility Assist Device Used No (0 pt) Altered Elimination No (0 pt) Score/Fall Risk Level 0 - 2 = Low Risk Oriented to surroundings, Maintained a safe environment, Educated pt \T\ family on fall prevention, incl call for assistance when getting out of bed, Assessed \T\ reinforced patient's understanding of fall precautions, Hourly rounding (assess needs \T\ fall precautionary measures) done, Used ambulatory aids as needed (educated on \T\ assisted with), Used gait belt as appropriate. Abuse screen: Denies threats or abuse. Nutritional screening: No deficits noted. Tuberculosis screening: No symptoms or risk factors identified. Vital Signs: 13:15 BP 150 / 90; Pulse 87; Resp 16; Temp 98.6; Pulse Ox 100% on R/A; Weight 92.99 kg; iw Height 5 ft. 9 in. ; Pain 0/10; 13:15 Body Mass Index 30.27 (92.99 kg, 175.26 cm) iw 13:15 Pain Scale: Adult iw ED Course: 13:01 Patient arrived in ED. im 13:01 Jose Miller MD is Attending Physician. ec2 13:17 Triage completed. iw 13:50 Arm band placed on right wrist. ap3 13:50 Patient has correct armband on for positive identification. Provided Education on: ap3 discharge instructions. 13:50 No provider procedures requiring assistance completed. Patient did not have IV access ap3 during this emergency room visit. Administered Medications: No medications were administered Medication: 13:51 VIS not applicable for this client. ap3 Outcome: 13:27 Discharge ordered by . ec2 13:50 Discharged to home ambulatory, ap3 13:50 Condition: good 13:50 Discharge instructions given to patient, Instructed on discharge instructions, follow up and referral plans. Demonstrated understanding of instructions, follow-up care, 13:51 Patient left the ED. ap3 Signatures: Sun Pollard RN RN iw Wanda Bustillos RN RN ap3 Cady Fernandez Jose Miller MD MD ec2 Corrections: (The following items were deleted from the chart) 13:17 13:15 BP 150 / 90; Pulse 87bpm; Resp 16bpm; Pulse Ox 100% RA; Temp 98.6F; iw iw
--- NOTE | 2023-10-04 13:28 | EDPHYS ---
Physician Documentation [facility] [place], [place] Name: Demarcus Mathias III Age: 18 yrs Sex: Male : 2005 Arrival Date: 10/04/2023 Time: 12:59 Bed IW7 Private MD: ED Physician Jose Miller HPI: 10/03 13:29 This 18 yrs old Male presents to ER via Ambulatory with complaints of Flu ec2 Symptoms. 13:29 Patient arrives today due to concern for STI. Patient reports that he had unprotected ec2 sex recently and was concerned. No penile discharge, no penile irritation, no lesions or rashes.. Historical: - Allergies: 13:17 NKDA; iw - Home Meds: 13:17 None [Active]; iw - PMHx: 13:17 Bordeline HTN; iw - PSHx: 13:17 Appendectomy; iw - Immunization history:: Adult Immunizations not up to date. - Infectious Disease History:: Denies. - Social history:: Smoking status: . ROS: 13:29 Constitutional: as per hpi ec2 Exam: 13:29 Constitutional: GEN: NAD Head: atraumatic Eyes: EOMI Ears: External ears are ec2 normal. CV: regular rate LUNGS: no respiratory distress ABD: non-distended SKIN: no evidence of rashes MSK: no evidence of trauma Vital Signs: 13:15 BP 150 / 90; Pulse 87; Resp 16; Temp 98.6; Pulse Ox 100% on R/A; Weight 92.99 kg; iw Height 5 ft. 9 in. ; Pain 0/10; 13:15 Body Mass Index 30.27 (92.99 kg, 175.26 cm) iw 13:15 Pain Scale: Adult iw MDM: 13:26 Patient medically screened. ec2 13:29 Data reviewed: vital signs. ED course: Patient arrives today for evaluation and concern ec2 of gonorrhea and chlamydia. Examination remarkable for well-appearing nontoxic 9-year-old who is otherwise in no acute distress we will send GC chlamydia, patient did not want outpatient therapy. I directed him to follow-up with primary care regarding further outpatient screening and testing.. 10/03 13:26 Order name: GC (Jaren/Chl) Probe CX/URE (Do not order if pt is under 13, order Culture ec2 instead) Administered Medications: No medications were administered Disposition Summary: 10/04/23 13:27 Discharge Ordered Condition: Stable ec2 Diagnosis - Concern for sexually transmitted infections ec2 Followup: ec2 - With: Private Physician - When: - Reason: Re-evaluation by your physician Discharge Instructions: - Discharge Summary Sheet ec2 - HIV Infection and AIDS ec2 - Preventing Sexually Transmitted Infections, Adult ec2 Forms: - Medication Reconciliation Form ec2 - Antibiotic Education ec2 - Prescription Opioid Use ec2 - Patient Portal Instructions ec2 - Leadership Thank You Letter ec2 Signatures: Dispatcher [employer] Sun Eaton RN RN iw Prokisch, Amanda, RN RN ap3 Jose Miller MD MD ec2
[2023-10-04 14:06] VITALS: BP 150/90; TEMP 98.6; O2SAT 100
[2023-10-07 12:38] LABS: C.trachomatis RNA,TMA Not Detected (Not Detected); N.gonorrhoeae RNA,TMA Not Detected (Not Detected)
== END 2023-10-04 13:51 | disposition home or self-care (01) ==
LOC: ER 12:59
DX: Z20.2 Contact with and (suspected) exposure to infections with a predominantly sexual mode of transmission (principal)
CPT/HCPCS: 87490; 87590; 99282